=== PATIENT | female | born 1985 | race Caucasian/White ===

== ENCOUNTER 2024-12-13 19:54 | Outpatient (REF) | payer BC, SELFPAY ==
[2024-12-18 15:08] LABS: Age Gdln ACOG Testing Note (.); HPV Aptima Negative (Negative); IGP, Aptima HPV, rfx 16/18,45 Note (.)
== END 2024-12-13 19:55 | disposition home or self-care (01) ==
LOC: LAB 19:54
PROVIDERS: PCP Nurse Practitioner; Visit Provider Nurse Practitioner
DX: Z01.419 Encounter for gynecological examination (general) (routine) without abnormal findings (principal)
CPT/HCPCS: 88175